=== PATIENT | male | born 1990 | race Caucasian/White ===

== ENCOUNTER → 2020-04-14 08:11 | Outpatient (BNVA) | payer OTHER, SELFPAY | PROVIDERS: Visit Provider Internal Medicine | DX: Z76.89 Persons encountering health services in other specified circumstances (principal) ==

== ENCOUNTER 2020-04-16 14:57 | Outpatient (REF) | payer OTHER, SELFPAY | END 2020-04-16 14:58 | disposition home or self-care (01) | LOC: HO.EHI 14:57 | PROVIDERS: Referring Provider Internal Medicine; Visit Provider Internal Medicine | DX: Z20.828 Contact with and (suspected) exposure to other viral communicable diseases (principal) | CPT/HCPCS: 87635; 99213 ==

== ENCOUNTER 2020-04-27 09:43 | Outpatient (REF) | payer OTHER, SELFPAY | END 2020-04-27 09:44 | disposition home or self-care (01) | LOC: HO.LAB 09:43 | PROVIDERS: Visit Provider Internal Medicine | DX: Z20.828 Contact with and (suspected) exposure to other viral communicable diseases (principal) | CPT/HCPCS: 87635 ==

== ENCOUNTER 2020-05-04 06:18 | Outpatient (REF) | payer OTHER, SELFPAY | END 2020-05-04 06:19 | disposition home or self-care (01) | LOC: HO.LAB 06:18 | PROVIDERS: Visit Provider Internal Medicine | DX: Z20.828 Contact with and (suspected) exposure to other viral communicable diseases (principal) | CPT/HCPCS: 87635 ==

== ENCOUNTER 2021-05-21 16:07 | Emergency (ER) | payer OTHER, SELFPAY ==
--- NOTE | ~2021-05-21 | XR_ITS ---
EXAMINATION: XR HAND, LEFT CLINICAL INFORMATION: Rule out foreign body glass COMPARISON: None TECHNIQUE: PA, lateral, and oblique views of the left hand. FINDINGS: Visualized portion of the distal radius and ulna demonstrate no fracture. Carpal rows are well aligned. No carpal, metacarpal or phalangeal fracture. No significant degenerative changes of the left hand. No focal soft tissue swelling. No radiopaque foreign body identified. XR/XR hand LT 2V IMPRESSION: No radiopaque foreign body identified.
[2021-05-21 16:20] VITALS: BP 150/99; PULSE 119; RESP 18; TEMP 36.4; O2SAT 98; BMI 39.4
[2021-05-21] MEDS: Diphth,Pertus(ACell),Tet Adult 0.5 ML SYRINGE IM (16:43)
[2021-05-21] MEDS: Lidocaine HCl 2 % MPF 5 ML VIAL SUBCUT (16:43)
--- NOTE | 2021-05-21 16:59 | ED.WOUNDLAC ---
HPI - Wound/Laceration General Chief Complaint: Wound/Laceration Stated Complaint: hand injury - work related Time Seen by Provider: 05/21/21 16:27 Source: patient Mode of arrival: ambulatory Limitations: no limitations History of Present Illness HPI narrative: 30 yo male here with laceration to left hand which occurred at work. 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 Tetanus status unknown. Related Data Allergies Allergy/AdvReac Type Severity Reaction Status Date / Time No Known Allergies Allergy Verified 05/21/21 16:20 Review of Systems Review of Systems: Yes all other systems are reviewed and are negative Constitutional: Constitutional: Reports no additional constitutional complaints, Denies body ache(s), Denies chills, Denies fever(s), Denies headache(s) and Denies weakness Eyes: Eyes: Reports no additional eye complaints and Denies change in vision ENT: Reports system reviewed and no additional complaints, except as documented, Denies dizziness, Denies headache(s), Denies nasal congestion, Denies nasal discharge and Denies neck pain Cardiovascular: Cardiovascular: Reports no additional cardiovascular complaints, Denies chest pain, Denies leg edema and Denies dyspnea Respiratory: Respiratory: Reports no additional respiratory complaints, Denies cough and Denies dyspnea Gastrointestinal: Gastrointestinal: Reports no additional gastrointestinal complaints, Denies abdominal pain, Denies diarrhea, Denies nausea and Denies vomiting Genitourinary: Genitourinary: Denies urinary incontinence Musculoskeletal: Musculoskeletal: Reports no additional musculoskeletal complaints, Denies back pain, Denies arthralgias, Denies joint swelling, Denies neck pain, Denies numbness and Denies tingling Integumentary/Breasts: Skin/Breast: Reports system reviewed and no additional complaints, except as docu and Denies rash Comments: +laceration Neurologic: Reports system reviewed and no additional complaints, except as documented, Denies Abnormal speech present, Denies dizziness, Denies headache(s), Denies numbness, Denies tingling and Denies weakness PMFSH Past Medical History Attestation statement: The following information was validated with the patient. Source: old records reviewed and nursing notes reviewed Medical History Patient denies medical problems Social History Social History Alcohol intake: unknown Patient Tobacco Use Status: Never used Tobacco Advance Directives: No Advance Directives Information Provided: No Physical Exam Vital Signs: Vital Signs: Last Vital Signs Temp 97.6 F 05/21/21 16:20 Pulse 119 H 05/21/21 16:20 Resp 18 05/21/21 16:20 BP 150/99 H 05/21/21 16:20 Pulse Ox 98 05/21/21 16:20 Body Mass Index 39.4 Const: General: cooperative, healthy appearing, comfortable and no acute distress Orientation/consciousness: patient oriented x3 Limitations: no limitations HENMT: Head: Yes normal to inspection Ears: hearing grossly normal bilaterally General nose exam: Normal external nose present Face and sinus: Yes normal facial exam Mouth: Normal oral and palatal mucosa present Throat: Yes posterior oropharynx normal Eyes: General: appearance normal, both eyes and all related structures Pupils: Equal, round and reactive pupils present Neck: Neck: Yes normal visual inspection Chest: Chest palpation & inspection: normal inspection of the chest Resp: Effort & Inspection: normal respiratory effort Auscultation: clear to auscultation bilaterally Cardio: Rate: regular rate Rhythm: regular rhythm Peripheral pulses: Peripheral pulses 2+ throughout GI: Inspection: Yes normal to inspection Palpation (GI): Soft to palpation and nontender Auscultation: normal bowel sounds Back/Spine/Pelvis: Thoracic/Lumbar Spine: thoracic and lumbar spine normal to inspection Skin: General skin exam: no rashes or lesions noted Neuro: General: patient oriented x3, no focal motor deficits and normal sensation to monofilament Cranial nerves: Yes Equal, round and reactive pupils present Cognition (Neuro): normal cognition Speech: No Abnormal speech present Gait exam (Neuro): Normal gait present Motor exam (neuro): 5/5 motor strength present throughout Extrem: Other: To the palmar aspect of the left hand there is a 2 centimetre laceration. Full range of motion of the hand. No palpable foreign body. Bleeding is controlled. No tendon laceration. Sensation is intact. General: Yes normal to inspection Course Course Course Narrative: [age] year old male here with laceration to the left hand which occurred at work. See procedure note. Tetanus was updated. X-ray shows no foreign body. Reviewed worrisome signs and symptoms of when to return to the emergency department. Comfortable discharge home. MDM - Wound/Laceration Medical Records Attestation: I reviewed the patient's medical records. Lab Data Attestation: I reviewed the patient's lab results. Imaging Data hand x-ray: Attestation: I personally reviewed and interpreted this imaging study as follows: Radiologist's impression: FINDINGS: Visualized portion of the distal radius and ulna demonstrate no fracture. Carpal rows are well aligned. No carpal, metacarpal or phalangeal fracture. No significant degenerative changes of the left hand. No focal soft tissue swelling. No radiopaque foreign body identified.? XR/XR hand LT 2V IMPRESSION: No radiopaque foreign body identified. Procedures Laceration Laceration 1: Site: hand Side (If applicable): left Size (cm): 2 Description: linear Depth: simple, single layer Local Anesthetic: lidocaine 2% Amount of anesthesia used (mL): 2 Pre-repair: wound explored, irrigated extensively and deep structures intact Skin layer closed with: vicryl Size (cm): 6-0 Number of sutures: 4 Technique: simple, interrupted Discharge Plan Discharge Clinical Impression: Laceration Patient Disposition: Home, Self-Care Instructions: Laceration (ED) Additional Instructions: Sutures out in 7 days Stand Alone Forms: Work/School Release Interventions: ED Discharge Assessment Last Done: 05/21/21 17:02 Discharge Date/Time: 05/21/21 17:03
== END 2021-05-21 17:03 | disposition home or self-care (01) ==
PROVIDERS: Emergency Provider Internal Medicine
DX: S61.412A Laceration without foreign body of left hand, initial encounter (principal); S60.512A Abrasion of left hand, initial encounter; M79.642 Pain in left hand; W25.XXXA Contact with sharp glass, initial encounter; Y93.9 Activity, unspecified; Y92.828 Other wilderness area as the place of occurrence of the external cause; Y99.0 Civilian activity done for income or pay
CPT/HCPCS: 12011; 73120; 90471; 90715; 99283; 99284